=== PATIENT | male | born 1985 | race Caucasian/White ===

== ENCOUNTER 2024-09-30 10:55 | Emergency (ER) | payer OTHER ==
[2024-09-30 11:03] VITALS: TEMP 98
--- NOTE | 2024-09-30 11:34 | ED ---
Extremity Problem HPI - General Chief complaint: Extremity Problem,Nontraumatic Stated complaint: L arm pain Time Seen by Provider: 09/30/24 11:05 Source: patient, RN notes reviewed Mode of arrival: ambulatory Limitations: no limitations - History of Present Illness Initial comments: 39-year-old male presents emergency department chief complaint of left shoulder pain. Patient states has been increasing last several months. He states initially started just below his shoulder but has now progressed he states that that he may have injured it during golfing. Patient states he has pain when he reaches back or lift certain objects on the front of the side to home. Patient denies any clicking or popping he is right-hand dominant denies any falls no neck complaints at this time no headache. Denies chest pain or shortness of breath. He has no pain at rest. - Related Data Allergies Allergy/AdvReac Type Severity Reaction Status Date / Time No Known Allergies Allergy Verified 09/30/24 11:03 Review of Systems ROS Statement: Those systems with pertinent positive or pertinent negative responses have been documented in the HPI. ROS Other: All systems not noted in ROS Statement are negative. Past Medical History Past Medical History: No Reported History History of Any Multi-Drug Resistant Organisms: None Reported Past Surgical History: No Surgical Hx Reported Past Psychological History: No Psychological Hx Reported Smoking Status: Never smoker Past Alcohol Use History: None Reported Past Drug Use History: None Reported General Exam Limitations: no limitations General appearance: alert, in no apparent distress Head exam: Present: atraumatic, normocephalic, normal inspection Eye exam: Present: normal appearance, PERRL, EOMI. Absent: scleral icterus, conjunctival injection, periorbital swelling ENT exam: Present: normal exam, normal oropharynx, mucous membranes moist Neck exam: Present: normal inspection, full ROM. Absent: tenderness, meningismus, lymphadenopathy Respiratory exam: Present: normal lung sounds bilaterally. Absent: respiratory distress, wheezes, rales, rhonchi, stridor Cardiovascular Exam: Present: regular rate, normal rhythm, normal heart sounds. Absent: systolic murmur, diastolic murmur, rubs, gallop, clicks Extremities exam: Present: other (Left shoulder full range of motion neurovascular intact there is mild discomfort the range of motion, positive apprehension) Neurological exam: Present: alert, oriented X3, CN II-XII intact, reflexes normal. Absent: motor sensory deficit Course Vital Signs 09/30/24 09/30/24 11:01 12:59 Temperature 98 F 98 F Pulse Rate 75 74 Respiratory 20 18 Rate Blood Pressure 120/83 121/86 O2 Sat by Pulse 98 98 Oximetry Medical Decision Making - Medical Decision Making Was pt. sent in by a medical professional or institution (JASIEL Willson, [employer] APPRENTICE, urgent care, hospital, or fdc...) When possible be specific @ -No Did you speak to anyone other than the patient for history (EMS, parent, family, police, friend...)? What history was obtained from this source @ -No Did you review nursing and triage notes (agree or disagree)? Why? @ -I reviewed and agree with nursing and triage notes Were old charts reviewed (outside hosp., previous admission, EMS record, old EKG, old radiological studies, urgent care reports/EKG's, fdc records)? Report findings @ -No old charts were reviewed Differential Diagnosis (chest pain, altered mental status, abdominal pain women, abdominal pain men, vaginal bleeding, weakness, fever, dyspnea, syncope, headache, dizziness, GI bleed, back pain, seizure, CVA, palpatations, mental health, musculoskeletal)? @ -Rotator cuff injury, shoulder dislocation, shoulder sprain EKG interpreted by me (3pts min.). @ -None X-rays interpreted by me (1pt min.). @ -Left shoulder showing no acute osseous abnormality no dislocation CT interpreted by me (1pt min.). @ -None done U/S interpreted by me (1pt. min.). @ -None done What testing was considered but not performed or refused? (CT, X-rays, U/S, labs)? Why? @ -None What meds were considered but not given or refused? Why? @ -None Did you discuss the management of the patient with other professionals (professionals i.e. JASIEL Willson, [employer] APPRENTICE, lab, RT, psych nurse, social worker health services, organic chemist, teacher, articulation officer, disability case manager)? Give summary @ -No Was smoking cessation discussed for >3mins.? @ -No Was critical care preformed (if so, how long)? @ -No Were there social determinants of health that impacted care today? How? (Homelessness, low income, unemployed, alcoholism, drug addiction, transportation, low edu. Level, literacy, decrease access to med. care, longterm, rehab)? @ -No Was there de-escalation of care discussed even if they declined (Discuss DNR or withdrawal of care, Hospice)? DNR status @ -No What co-morbidities impacted this encounter? (DM, HTN, Smoking, COPD, CAD, Cancer, CVA, ARF, Chemo, Hep., AIDS, mental health diagnosis, sleep apnea, morbid obesity)? @ -None Was patient admitted / discharged? Hospital course, mention meds given and route, prescriptions, significant lab abnormalities, going to OR and other pertinent info. @ -Discharge patient has a left shoulder instability, shoulder pain will follow- up with orthopedics for MRI Undiagnosed new problem with uncertain prognosis? @ -No Drug Therapy requiring intensive monitoring for toxicity (Heparin, Nitro, Insulin, Cardizem)? @ -No Were any procedures done? @ -No Diagnosis/symptom? @ -Left shoulder pain Acute, or Chronic, or Acute on Chronic? @ -Acute Uncomplicated (without systemic symptoms) or Complicated (systemic symptoms)? @Uncomplicated Side effects of treatment? @ -No Exacerbation, Progression, or Severe Exacerbation? @ -No Poses a threat to life or bodily function? How? (Chest pain, USA, PA, pneumonia, PE, COPD, DKA, ARF, appy, cholecystitis, CVA, Diverticulitis, Homicidal, Suicidal, threat to staff... and all critical care pts) @ -No Disposition Clinical Impression: Left shoulder pain Disposition: HOME SELF-CARE Condition: Stable Instructions (If sedation given, give patient instructions): Shoulder Pain (ED) Additional Instructions: Please return to the Emergency Department if symptoms worsen or any other concerns. Is patient prescribed a controlled substance at d/c from ED?: No Referrals: [facility] [NON-STAFF] - 1-2 days Albert Ballesteros DO [Doctor of Osteopathic Medicine] - 1-2 days Time of Disposition: 12:41
--- NOTE | 2024-09-30 12:14 | XR ---
EXAMINATION TYPE: XR shoulder complete LT DATE OF EXAM: 09/30/2024 COMPARISON: NONE CLINICAL INDICATION: Male, 39 years old with history of pain; TECHNIQUE: 3 views FINDINGS: AC joint appears congruent and intact. Subacromial space is preserved. Smooth delineation o f the greater tuberosity. No acute fracture, subluxation, dislocation. IMPRESSION: No acute osseous abnormality seen. If symptoms persist, consider MRI. [facility], Workstation: [facility], 09/30/2024 12:12 PM
[2024-09-30 13:00] VITALS: BP 121/86; PULSE 74; RESP 18
== END 2024-09-30 13:22 | disposition home or self-care (01) ==
LOC: EC 10:55
DX: M25.512 Pain in left shoulder (principal)
CPT/HCPCS: 99283